=== PATIENT | male | born 1950 | race Caucasian/White ===

== ENCOUNTER 2023-12-18 06:06 | Day surgery (SDC) | payer MEDICARE, OTHER ==
[2023-12-13 10:22] VITALS: BMI 29.9
[2023-12-18] MEDS ORDERED: Lidocaine 1% PF 5 ML VIAL ONE (08:55)
[2023-12-18] MEDS ORDERED: Dexamethasone 20 MG/5 ML VIAL ONE (08:55)
[2023-12-18] MEDS ORDERED: Rocuronium Bromide 10 MG/ML (10ML VIAL) ONE (08:55)
[2023-12-18] MEDS ORDERED: Ondansetron PF 4 MG/2 ML Vial ONE ×2 (08:55)
[2023-12-18] MEDS ORDERED: PROPOFOL 20 ML ONE ×2 (08:55→08:56)
[2023-12-18] MEDS ORDERED: PHENYLEPHRINE-NS 100 MCG/ML 10 ML SYRINGE ONE (08:55)
[2023-12-18] MEDS ORDERED: Fentanyl 250 MCG/5 ML VIAL ONE (08:55)
[2023-12-18] MEDS ORDERED: Midazolam HCl 2 mg/2 ml Vial ONE (08:55)
[2023-12-18] MEDS ORDERED: ePHEDrine Sulfate 50 MG/10 ML VIAL ONE (08:56)
[2023-12-18] MEDS ORDERED: Oxymetazoline HCl 0.05% ( 15 ML ) ONE (09:25)
[2023-12-18] MEDS ORDERED: CEFAZOLIN 2 GM VIAL ONE (09:25)
[2023-12-18] MEDS ORDERED: Vancomycin 1 GM VIAL ONE (09:25)
[2023-12-18] MEDS ORDERED: EPINEPHrine 1 MG/ML VIAL ONE (09:25)
== END 2023-12-18 10:30 | disposition home or self-care (01) ==
LOC: CSHSDC 06:06
PROVIDERS: ATTEND Otolaryngology Otolaryngic Allergy
PROC: 0DH Gastrointestinal System, Insertion (ICD-10-PCS; principal; 2023-12-18)
DX: G47.33 Obstructive sleep apnea (adult) (pediatric) (principal); I10 Essential (primary) hypertension; F31.9 Bipolar disorder, unspecified; Z85.828 Personal history of other malignant neoplasm of skin; Z91.013 Allergy to seafood; Z79.899 Other long term (current) drug therapy; Z98.890 Other specified postprocedural states
CPT/HCPCS: C1787; C1820; C1898; J0171; J1100; J2250; J2405; J2704; J3010; J3370